=== PATIENT | male | born 1935 | race African-American/Black ===

== ENCOUNTER 2019-12-06 13:00 | Inpatient (IN) | payer MEDICARE, MEDICAID ==
[~2019-12-06] VITALS: Ht 182.9 cm; Wt 65.3 kg
[~2019-12-06 13:00] MED LIST: HYDR-4009 PO; METH-611 PO; NIFE-33 MT; SILD25TA9 PO; TERA10CA4 PO; [UNRECOGNIZED DRUG - CODE] PO
[2019-12-06] MEDS ORDERED: ONDANSETRON HCL 4MG/2ML INJ IV STA (14:14)
[2019-12-06] MEDS ORDERED: SODIUM CHLORIDE 0.9% 500 ML IV ONE (14:14)
[2019-12-06] MEDS ORDERED: NALOXONE HCL 1 MG/ML 2ML VIAL IV ONE (14:15)
[2019-12-06 14:29] LABS: BASOPHILS % 0.6 % (0.0-2.0); EOSINOPHILS % 0.3 % (0.0-5.0); HEMATOCRIT. 30.6 % (42.0-52.0); HEMOGLOBIN. 10.8 g/dL (14.0-18.0); LYMPHOCYTES % 9.7 % (20.0-50.0); MEAN CORPUSCULAR HEMOGLOBIN 29.1 pg (28.0-32.0); MEAN CORPUSCULAR VOLUME 82.4 fL (80.0-94.0); MONOCYTES % 7.1 % (2.0-8.0); NEUTROPHILS % 82.3 % (40.0-76.0); PLATELET 120 x1000/uL (130-400); RED BLOOD CELL COUNT 3.71 mill/uL (4.7-6.1)
[2019-12-06 14:40] LABS: INR 1.3; PROTHROMBIN TIME 14.5 sec (9.6-11.0)
[2019-12-06 14:50] LABS: CHLORIDE 117 mEq/L (98-107)
[2019-12-06 14:54] LABS: CLARITY URINE TURBID (CLEAR); COLOR URINE YELLOW (YELLOW); KETONES URINE NEGATIVE (NEGATIVE); LEUKOCYTE ESTERASE URINE 3+ (NEGATIVE); NITRITE URINE POSITIVE (NEGATIVE); OCCULT BLOOD URINE 2+ (NEGATIVE); PH URINE 5.5 (4.5-8.0); PROTEIN URINE 2+ (NEGATIVE); SPECIFIC GRAVITY URINE 1.014 (1.005-1.030); UROBILINOGEN URINE 0.2 E.U./dL (0.2-1.0)
[2019-12-06 14:54] LABS: ETHANOL BLOOD < 10 mg/dL
[2019-12-06 14:58] LABS: CREATINE KINASE 486 IU/L (39-308)
[2019-12-06] MEDS ORDERED: SODIUM POLYSTYRENE SULFONATE 15 G/60 ML BOT PO ONE (15:15)
[2019-12-06] MEDS ORDERED: CEFTRIAXONE 1 G PREMIX 50 ML IV ONE (15:15)
[2019-12-06] MEDS ORDERED: INSULIN REGULAR (HUMULIN R) 300UNITS/3ML IV ONE (15:15)
[2019-12-06] MEDS ORDERED: SODIUM BICARBONATE 8.4% 1 MEQ/ML 50ML SYR IV ONE (15:15)
[2019-12-06] MEDS ORDERED: DEXTROSE 50% WATER 50ML SYRINGE IV ONE (15:15)
[2019-12-06] MEDS ORDERED: CALCIUM CHLORIDE 1GM/10ML SYR IV ONE (15:15)
[2019-12-06 15:38] LABS: *AMPHETAMINES SCREEN URINE NEGATIVE (NEGATIVE); *BARBITURATES SCREEN URINE NEGATIVE (NEGATIVE); *BENZODIAZEPINES SCREEN URINE NEGATIVE (NEGATIVE); *COCAINE SCREEN URINE NEGATIVE (NEGATIVE); METHADONE URINE SCREEN NEGATIVE (NEGATIVE); OPIATES URINE SCREEN PRESUMTIVE POSITIVE (NEGATIVE)
[2019-12-06 15:39] LABS: CANNABINOID URINE SCREEN NEGATIVE (NEGATIVE); PHENCYCLIDINE URINE SCREEN NEGATIVE (NEGATIVE)
[2019-12-06 16:16] LABS: BG BASE EXCESS -10.7 mmol/L (-2.0-2.0); BG CARBOXYHEMOGLOBIN 0.3 % (0.5-1.5); BG DEOXYHEMOGLOBIN 5.7 % (0.0-5.0); BG FRACTION INSPIRED OXYGEN 21; BG HCO3 ACT 11.1 mmol/L (22.0-26.0); BG METHEMOGLOBIN 0.2 % (0.0-1.5); BG OXYGEN SATURATION 94.3 % (92.0-98.5); BG OXYHEMOGLOBIN 93.8 % (94.0-97.0); BG PCO2 16.5 mmHg (35.0-45.0); BG PH 7.446 (7.350-7.450); BG SAMPLE SITE RIGHT BRACHIAL; BG TOTAL HEMOGLOBIN 10.9 g/dL (12.0-18.0); BG VENT MODE ROOM AIR
[2019-12-06] MEDS ORDERED: HEPARIN 1000 UNITS/ML 10ML ONE (16:59)
[2019-12-06] MEDS ORDERED: DOCUSATE SODIUM 100MG CAPSULE PO PRN (17:00)
[2019-12-06] MEDS ORDERED: HYDROCODONE/ACETAMINOPHEN 5/325MG TABLET PO PRN (17:00)
[2019-12-06] MEDS ORDERED: MAGNESIUM/ALUMINUM HYDROXIDE/SIMETHICONE 30ML UDC PO PRN (17:00)
[2019-12-06] MEDS ORDERED: IPRATROPIUM/ALBUTEROL 0.5-3(2.5)MG/3ML NEB NEB PRN (17:00)
[2019-12-06] MEDS ORDERED: GUAIFENESIN 200MG/10ML SUGAR FREE UDC PO PRN (17:00)
[2019-12-06] MEDS ORDERED: ONDANSETRON HCL 4MG/2ML INJ IV PRN (17:00)
[2019-12-06] MEDS ORDERED: MORPHINE SULFATE 2 MG/ML CPJ (NOT FOR IM USE) IV PRN (17:00)
[2019-12-06] MEDS ORDERED: LORAZEPAM 2MG/ML CPJ IV PRN (17:00)
[2019-12-06] MEDS ORDERED: CLONIDINE 0.1MG TABLET PO PRN (17:00)
[2019-12-06] MEDS ORDERED: NA PHOS,M-B/NA PHOS,DI-BA ENEMA 118ML PR PRN (17:00)
[2019-12-06] MEDS: ENOXAPARIN 30MG/0.3ML SYR SUBCUT SCH (17:30)
[2019-12-06] MEDS: SODIUM CHLORIDE 0.45% 1,000 ML IV SCH (17:59)
[2019-12-06] MEDS ORDERED: MANNITOL 12.5G (25%) VIAL 50ML IV NR (18:00)
[2019-12-06 22:45] VITALS: BP 91/47
[2019-12-07] VITALS (12 sets, daily range): BP systolic 85–122; BP diastolic 53–68
[2019-12-07] MEDS ORDERED: MANNITOL 12.5G (25%) VIAL 50ML IV NR (02:30)
[2019-12-07] MEDS ORDERED: HEPARIN SODIUM 1,000 UNIT/1ML VIAL IV NR (04:30)
[2019-12-07 13:37] LABS: BASOPHILS % 0.4 % (0.0-2.0); EOSINOPHILS % 0.1 % (0.0-5.0); HEMATOCRIT. 28.1 % (42.0-52.0); HEMOGLOBIN. 9.9 g/dL (14.0-18.0); LYMPHOCYTES % 11.7 % (20.0-50.0); MEAN CORPUSCULAR HEMOGLOBIN 28.8 pg (28.0-32.0); MEAN CORPUSCULAR VOLUME 81.7 fL (80.0-94.0); MONOCYTES % 7.6 % (2.0-8.0); NEUTROPHILS % 80.2 % (40.0-76.0); PLATELET 92 x1000/uL (130-400); RED BLOOD CELL COUNT 3.44 mill/uL (4.7-6.1); RED CELL DISTRIBUTION WIDTH 20.6 % (11.6-14.6)
[2019-12-07 13:44] LABS: CHLORIDE 111 mEq/L (98-107)
[2019-12-07 13:51] LABS: LDL CHOLESTEROL 81 mg/dL (5-100)
[2019-12-07 13:53] LABS: HDL CHOLESTEROL 49 mg/dL (40-59); T4 FREE 0.85 ng/dL (0.76-1.46)
[2019-12-07 13:55] LABS: CREATINE KINASE 410 IU/L (39-308)
[2019-12-07] MEDS: SODIUM CHLORIDE 0.45% 1,000 ML IV SCH (14:28)
[2019-12-07] MEDS: CEFTRIAXONE 1 G PREMIX 50 ML IV SCH (15:08)
[2019-12-07] MEDS: ASPIRIN 81MG TABLET PO SCH (15:08)
[2019-12-07] MEDS: ENOXAPARIN 30MG/0.3ML SYR SUBCUT SCH (17:30)
[2019-12-07 18:10] LABS: T4 FREE 0.84 ng/dL (0.76-1.46)
[2019-12-08] VITALS (12 sets, daily range): BP systolic 111–127; BP diastolic 53–76
[2019-12-08 00:06] LABS: CREATINE KINASE MB FRACTION 7.5 ng/mL (0.5-3.6)
[2019-12-08 06:43] LABS: CREATINE KINASE MB FRACTION 7.6 ng/mL (0.5-3.6)
[2019-12-08] MEDS: ASPIRIN 81MG TABLET PO SCH (08:35)
[2019-12-08 13:04] LABS: HEPATITIS B SURFACE AB < 3.1 mIU/mL
[2019-12-08 13:15] LABS: HEPATITIS B SURFACE ANTIGEN NEGATIVE
[2019-12-08 13:45] LABS: HEPATITIS A AB IGM NEGATIVE (NEGATIVE)
[2019-12-08 15:40] LABS: CREATINE KINASE MB FRACTION 7.4 ng/mL (0.5-3.6)
[2019-12-08] MEDS: CEFTRIAXONE 1 G PREMIX 50 ML IV SCH (15:43)
[2019-12-08] MEDS: ENOXAPARIN 30MG/0.3ML SYR SUBCUT SCH (17:25)
[2019-12-09] VITALS (12 sets, daily range): BP systolic 108–134; BP diastolic 57–76
[2019-12-09] MEDS: SODIUM CHLORIDE 0.45% 1,000 ML IV SCH (05:30)
[2019-12-09 06:27] LABS: BASOPHILS % 0.5 % (0.0-2.0); EOSINOPHILS % 0.5 % (0.0-5.0); HEMATOCRIT. 31.9 % (42.0-52.0); HEMOGLOBIN. 10.9 g/dL (14.0-18.0); LYMPHOCYTES % 12.7 % (20.0-50.0); MEAN CORPUSCULAR HEMOGLOBIN 28.6 pg (28.0-32.0); MEAN CORPUSCULAR VOLUME 84.1 fL (80.0-94.0); MONOCYTES % 7.6 % (2.0-8.0); NEUTROPHILS % 78.7 % (40.0-76.0); PLATELET 94 x1000/uL (130-400); RED BLOOD CELL COUNT 3.79 mill/uL (4.7-6.1); RED CELL DISTRIBUTION WIDTH 21.6 % (11.6-14.6)
[2019-12-09] MEDS: ASPIRIN 81MG TABLET PO SCH (09:00)
[2019-12-09] MEDS ORDERED: HEPARIN SODIUM 1,000 UNIT/1ML VIAL IV NR (10:00)
[2019-12-09] MEDS: CEFTRIAXONE 1 G PREMIX 50 ML IV SCH (15:00)
[2019-12-09] MEDS: ENOXAPARIN 30MG/0.3ML SYR SUBCUT SCH (17:28)
[2019-12-10] VITALS (12 sets, daily range): BP systolic 108–137; BP diastolic 61–82
[2019-12-10] MEDS: SODIUM CHLORIDE 0.45% 1,000 ML IV SCH ×2 (02:17→09:19)
[2019-12-10 07:05] LABS: BASOPHILS % 0.3 % (0.0-2.0); EOSINOPHILS % 0.4 % (0.0-5.0); HEMATOCRIT. 33.2 % (42.0-52.0); HEMOGLOBIN. 11.4 g/dL (14.0-18.0); LYMPHOCYTES % 12.7 % (20.0-50.0); MEAN CORPUSCULAR HEMOGLOBIN 28.6 pg (28.0-32.0); MEAN CORPUSCULAR VOLUME 82.8 fL (80.0-94.0); MEAN PLATELET VOLUME 8.6 fl (7.4-10.4); MONOCYTES % 6.2 % (2.0-8.0); NEUTROPHILS % 80.4 % (40.0-76.0); PLATELET 86 x1000/uL (130-400); RED CELL DISTRIBUTION WIDTH 21.2 % (11.6-14.6)
[2019-12-10] MEDS: ASPIRIN 81MG TABLET PO SCH (09:19)
[2019-12-10] MEDS: CEFTRIAXONE 1 G PREMIX 50 ML IV SCH (15:55)
[2019-12-11] VITALS (13 sets, daily range): BP systolic 97–133; BP diastolic 56–76
[2019-12-11 06:33] LABS: BASOPHILS % 0.2 % (0.0-2.0); EOSINOPHILS % 0.5 % (0.0-5.0); HEMATOCRIT. 32.9 % (42.0-52.0); HEMOGLOBIN. 11.3 g/dL (14.0-18.0); LYMPHOCYTES % 8.4 % (20.0-50.0); MEAN CORPUSCULAR VOLUME 84.4 fL (80.0-94.0); MEAN PLATELET VOLUME 8.8 fl (7.4-10.4); MONOCYTES % 7.4 % (2.0-8.0); NEUTROPHILS % 83.5 % (40.0-76.0); PLATELET 79 x1000/uL (130-400); RED CELL DISTRIBUTION WIDTH 21.4 % (11.6-14.6)
[2019-12-11] MEDS: CARVEDILOL 3.125 MG TABLET PO SCH (09:06)
[2019-12-11] MEDS: LOSARTAN POTASSIUM 25 MG TABLET PO SCH (09:08)
[2019-12-11] MEDS: ASPIRIN 81MG TABLET PO SCH (09:08)
[2019-12-11] MEDS: CEFTRIAXONE 1 G PREMIX 50 ML IV SCH (15:30)
[2019-12-11] MEDS: SODIUM CHLORIDE 0.45% 1,000 ML IV SCH (15:31)
[2019-12-12] VITALS (11 sets, daily range): BP systolic 110–132; BP diastolic 58–88
[2019-12-12 07:06] LABS: BASOPHILS % 0.2 % (0.0-2.0); EOSINOPHILS % 0.5 % (0.0-5.0); HEMATOCRIT. 34.5 % (42.0-52.0); HEMOGLOBIN. 11.8 g/dL (14.0-18.0); LYMPHOCYTES % 10.2 % (20.0-50.0); MEAN CORPUSCULAR HEMOGLOBIN 28.6 pg (28.0-32.0); MEAN CORPUSCULAR VOLUME 83.7 fL (80.0-94.0); MEAN PLATELET VOLUME 9.1 fl (7.4-10.4); MONOCYTES % 7.3 % (2.0-8.0); NEUTROPHILS % 81.8 % (40.0-76.0); PLATELET 79 x1000/uL (130-400); RED BLOOD CELL COUNT 4.12 mill/uL (4.7-6.1); RED CELL DISTRIBUTION WIDTH 21.3 % (11.6-14.6)
[2019-12-12] MEDS: ASPIRIN 81MG TABLET PO SCH (08:43)
[2019-12-12] MEDS: LOSARTAN POTASSIUM 25 MG TABLET PO SCH (08:43)
[2019-12-12] MEDS: CARVEDILOL 3.125 MG TABLET PO SCH (08:43)
[2019-12-12] MEDS: SODIUM CHLORIDE 0.45% 1,000 ML IV SCH (14:09)
[2019-12-12] MEDS: CEFTRIAXONE 1 G PREMIX 50 ML IV SCH (16:09)
[2019-12-13] VITALS (17 sets, daily range): BP systolic 109–144; BP diastolic 61–81
[2019-12-13] MEDS: ACETAMINOPHEN 325MG TABLET PO PRN (01:37)
[2019-12-13] MEDS: ASPIRIN 81MG TABLET PO SCH (09:25)
[2019-12-13] MEDS: CARVEDILOL 3.125 MG TABLET PO SCH (09:26)
[2019-12-13] MEDS: SODIUM CHLORIDE 0.45% 1,000 ML IV SCH (09:26)
[2019-12-13] MEDS: LOSARTAN POTASSIUM 25 MG TABLET PO SCH (09:26)
[2019-12-13 10:47] LABS: BASOPHILS % 0.4 % (0.0-2.0); EOSINOPHILS % 0.4 % (0.0-5.0); HEMATOCRIT. 35.1 % (42.0-52.0); HEMOGLOBIN. 12.2 g/dL (14.0-18.0); LYMPHOCYTES % 9.9 % (20.0-50.0); MEAN CORPUSCULAR HEMOGLOBIN 29.1 pg (28.0-32.0); MEAN CORPUSCULAR VOLUME 83.9 fL (80.0-94.0); MEAN PLATELET VOLUME 9.1 fl (7.4-10.4); MONOCYTES % 6.5 % (2.0-8.0); NEUTROPHILS % 82.8 % (40.0-76.0); PLATELET 73 x1000/uL (130-400); RED BLOOD CELL COUNT 4.18 mill/uL (4.7-6.1); RED CELL DISTRIBUTION WIDTH 21.2 % (11.6-14.6)
[2019-12-14] VITALS (12 sets, daily range): BP systolic 109–140; BP diastolic 50–82
[2019-12-14] MEDS: SODIUM CHLORIDE 0.45% 1,000 ML IV SCH (06:51)
[2019-12-14 06:53] LABS: BASOPHILS % 0.4 % (0.0-2.0); EOSINOPHILS % 0.2 % (0.0-5.0); HEMATOCRIT. 34.4 % (42.0-52.0); HEMOGLOBIN. 11.7 g/dL (14.0-18.0); LYMPHOCYTES % 7.2 % (20.0-50.0); MEAN CORPUSCULAR HEMOGLOBIN 29.1 pg (28.0-32.0); MEAN CORPUSCULAR VOLUME 85.2 fL (80.0-94.0); MEAN PLATELET VOLUME 9.5 fl (7.4-10.4); MONOCYTES % 7.9 % (2.0-8.0); NEUTROPHILS % 84.3 % (40.0-76.0); PLATELET 74 x1000/uL (130-400); RED BLOOD CELL COUNT 4.03 mill/uL (4.7-6.1); RED CELL DISTRIBUTION WIDTH 21.2 % (11.6-14.6)
[2019-12-14] MEDS: CARVEDILOL 3.125 MG TABLET PO SCH (09:00)
[2019-12-14] MEDS: LOSARTAN POTASSIUM 25 MG TABLET PO SCH (09:00)
[2019-12-15] VITALS (12 sets, daily range): BP systolic 113–134; BP diastolic 60–83
[2019-12-15] MEDS: SODIUM CHLORIDE 0.45% 1,000 ML IV SCH (05:35)
[2019-12-15 06:44] LABS: HEMOGLOBIN. 11.7 g/dL (14.0-18.0); MEAN CORPUSCULAR HEMOGLOBIN 29.2 pg (28.0-32.0); MEAN CORPUSCULAR VOLUME 85.1 fL (80.0-94.0); MEAN PLATELET VOLUME 9.4 fl (7.4-10.4); PLATELET 78 x1000/uL (130-400); RED CELL DISTRIBUTION WIDTH 21.4 % (11.6-14.6)
[2019-12-15] MEDS: CARVEDILOL 3.125 MG TABLET PO SCH (08:42)
[2019-12-15] MEDS: LOSARTAN POTASSIUM 25 MG TABLET PO SCH (08:42)
[2019-12-15 14:32] LABS: PLATELET ESTIMATE DECREASED
[2019-12-16] VITALS (17 sets, daily range): BP systolic 97–136; BP diastolic 32–78
[2019-12-16 05:56] LABS: INR 1.3; PARTIAL THROMBOPLASTIN TIME 28.2 sec (23.4-31.0); PROTHROMBIN TIME 13.6 sec (9.6-11.0)
[2019-12-16 06:08] LABS: BASOPHILS % 0.5 % (0.0-2.0); EOSINOPHILS % 0.2 % (0.0-5.0); HEMATOCRIT. 35.5 % (42.0-52.0); LYMPHOCYTES % 5.8 % (20.0-50.0); MEAN CORPUSCULAR HEMOGLOBIN 28.7 pg (28.0-32.0); MEAN CORPUSCULAR VOLUME 85.1 fL (80.0-94.0); MEAN PLATELET VOLUME 9.9 fl (7.4-10.4); MONOCYTES % 7.9 % (2.0-8.0); NEUTROPHILS % 85.6 % (40.0-76.0); PLATELET 85 x1000/uL (130-400); RED BLOOD CELL COUNT 4.17 mill/uL (4.7-6.1); RED CELL DISTRIBUTION WIDTH 21.1 % (11.6-14.6)
[2019-12-16] MEDS ORDERED: ASCORBIC ACID 250 MG TABLET PO SCH (09:00)
[2019-12-16] MEDS ORDERED: CEFAZOLIN 1000MG PREMIX 50 ML IV SCH (10:00)
[2019-12-16] MEDS ORDERED: CEFAZOLIN 1000MG PREMIX 50 ML IV ONE (10:00)
[2019-12-16] MEDS ORDERED: SODIUM BICARBONATE 4% (2.4MEQ) 5ML VIAL IV ONE (10:09)
[2019-12-16] MEDS ORDERED: LIDOCAINE HCL 1% 20ML VIAL (Pyxis) INJ ONE (10:09)
[2019-12-16] MEDS: ZINC SULFATE 220 MG ( 50 ) CAPSULE PO SCH (12:34)
[2019-12-16] MEDS: ASCORBIC ACID 500 MG TABLET PO SCH (12:34)
[2019-12-16] MEDS: LOSARTAN POTASSIUM 25 MG TABLET PO SCH (12:35)
[2019-12-16] MEDS: CARVEDILOL 3.125 MG TABLET PO SCH (12:36)
[2019-12-17] VITALS (9 sets, daily range): BP systolic 93–136; BP diastolic 54–82
[2019-12-17] MEDS: ZINC SULFATE 220 MG ( 50 ) CAPSULE PO SCH (08:53)
[2019-12-17] MEDS: CARVEDILOL 3.125 MG TABLET PO SCH (08:53)
[2019-12-17] MEDS: LOSARTAN POTASSIUM 25 MG TABLET PO SCH (08:53)
[2019-12-17] MEDS: ASCORBIC ACID 500 MG TABLET PO SCH (08:53)
[2019-12-18] VITALS: BP_SYST 100; BP_SYST 93; BP_DIAS 54; BP_DIAS 61
[2019-12-18 04:00] VITALS: BP 123/72
[2019-12-18 06:16] LABS: BASOPHILS % 0.1 % (0.0-2.0); EOSINOPHILS % 0.1 % (0.0-5.0); HEMOGLOBIN. 10.8 g/dL (14.0-18.0); LYMPHOCYTES % 7.3 % (20.0-50.0); MEAN CORPUSCULAR HEMOGLOBIN 28.6 pg (28.0-32.0); MEAN CORPUSCULAR VOLUME 85.2 fL (80.0-94.0); MEAN PLATELET VOLUME 9.4 fl (7.4-10.4); MONOCYTES % 8.6 % (2.0-8.0); NEUTROPHILS % 83.9 % (40.0-76.0); PLATELET 89 x1000/uL (130-400); RED BLOOD CELL COUNT 3.75 mill/uL (4.7-6.1); RED CELL DISTRIBUTION WIDTH 21.4 % (11.6-14.6)
[2019-12-18 08:00] VITALS: BP 102/58
[2019-12-18] MEDS: ASCORBIC ACID 500 MG TABLET PO SCH (08:37)
[2019-12-18] MEDS: ZINC SULFATE 220 MG ( 50 ) CAPSULE PO SCH (08:37)
[2019-12-18] MEDS: CARVEDILOL 3.125 MG TABLET PO SCH (08:37)
[2019-12-18] MEDS: LOSARTAN POTASSIUM 25 MG TABLET PO SCH (08:38)
[2019-12-18 12:00] VITALS: BP 121/70
[2019-12-18 16:00] VITALS: BP 117/65
[2019-12-18 20:00] VITALS: BP 110/63
[2019-12-19] VITALS: BP 120/69
[2019-12-19 04:00] VITALS: BP 122/68
[2019-12-19 08:00] VITALS: BP 113/65
[2019-12-19] MEDS: CARVEDILOL 3.125 MG TABLET PO SCH (10:38)
[2019-12-19] MEDS: ASCORBIC ACID 500 MG TABLET PO SCH (10:39)
[2019-12-19] MEDS: ZINC SULFATE 220 MG ( 50 ) CAPSULE PO SCH (10:39)
[2019-12-19] MEDS: LOSARTAN POTASSIUM 25 MG TABLET PO SCH (10:41)
[2019-12-19 11:40] VITALS: BP 105/61
[2019-12-19 20:00] VITALS: BP 137/74
[2019-12-20] VITALS: BP 130/72
[2019-12-20 04:00] VITALS: BP 139/81
[2019-12-20] MEDS: ACETAMINOPHEN 325MG TABLET PO PRN (04:02)
[2019-12-20 08:32] VITALS: BP 122/64
[2019-12-20] MEDS: ZINC SULFATE 220 MG ( 50 ) CAPSULE PO SCH (08:50)
[2019-12-20] MEDS: ASCORBIC ACID 500 MG TABLET PO SCH (08:50)
[2019-12-20] MEDS: LOSARTAN POTASSIUM 25 MG TABLET PO SCH (08:51)
[2019-12-20] MEDS: CARVEDILOL 3.125 MG TABLET PO SCH (08:51)
[2019-12-20 11:52] VITALS: BP 105/72
[2019-12-20 16:01] VITALS: BP 112/68
[2019-12-20 20:00] VITALS: BP 116/69
[2019-12-21] VITALS: BP_SYST 108; BP_SYST 123; BP_DIAS 56; BP_DIAS 71
[2019-12-21 04:00] VITALS: BP 123/71
[2019-12-21 06:19] LABS: BASOPHILS % 0.4 % (0.0-2.0); EOSINOPHILS % 0.6 % (0.0-5.0); HEMATOCRIT. 30.7 % (42.0-52.0); HEMOGLOBIN. 10.4 g/dL (14.0-18.0); LYMPHOCYTES % 10.6 % (20.0-50.0); MEAN CORPUSCULAR VOLUME 85.8 fL (80.0-94.0); MONOCYTES % 12.9 % (2.0-8.0); NEUTROPHILS % 75.5 % (40.0-76.0); PLATELET 96 x1000/uL (130-400); RED BLOOD CELL COUNT 3.57 mill/uL (4.7-6.1); RED CELL DISTRIBUTION WIDTH 20.9 % (11.6-14.6)
[2019-12-21 08:00] VITALS: BP 112/64
[2019-12-21] MEDS: ZINC SULFATE 220 MG ( 50 ) CAPSULE PO SCH (09:04)
[2019-12-21] MEDS: CARVEDILOL 3.125 MG TABLET PO SCH (09:05)
[2019-12-21] MEDS: LOSARTAN POTASSIUM 25 MG TABLET PO SCH (09:05)
[2019-12-21] MEDS: ASCORBIC ACID 500 MG TABLET PO SCH (09:05)
[2019-12-21 12:00] VITALS: BP 121/63
[2019-12-21] MEDS ORDERED: HEPARIN SODIUM 1,000 UNIT/1ML VIAL IV NR (15:00)
[2019-12-21 16:00] VITALS: BP 113/64
[2019-12-21 20:00] VITALS: BP 109/70
[2019-12-22] VITALS: BP 119/68
[2019-12-22 04:50] VITALS: BP 129/77
[2019-12-22 08:00] VITALS: BP 141/76
[2019-12-22] MEDS: LOSARTAN POTASSIUM 25 MG TABLET PO SCH (09:25)
[2019-12-22] MEDS: ZINC SULFATE 220 MG ( 50 ) CAPSULE PO SCH (09:25)
[2019-12-22] MEDS: ASCORBIC ACID 500 MG TABLET PO SCH (09:25)
[2019-12-22] MEDS: CARVEDILOL 3.125 MG TABLET PO SCH (09:25)
[2019-12-22 12:00] VITALS: BP 135/69
[2019-12-22 16:00] VITALS: BP 124/69
[2019-12-22] MEDS: ACETAMINOPHEN 325MG TABLET PO PRN (16:24)
[2019-12-22] MEDS: HYDROCODONE/ACETAMINOPHEN 10/325MG TABLET PO PRN (16:56)
[2019-12-22 20:00] VITALS: BP 117/73
[2019-12-23] VITALS: BP 132/75
[2019-12-23 04:00] VITALS: BP 132/83
[2019-12-23 06:48] LABS: BASOPHILS % 0.8 % (0.0-2.0); EOSINOPHILS % 0.2 % (0.0-5.0); HEMATOCRIT. 30.9 % (42.0-52.0); HEMOGLOBIN. 10.4 g/dL (14.0-18.0); LYMPHOCYTES % 11.7 % (20.0-50.0); MEAN CORPUSCULAR HEMOGLOBIN 28.9 pg (28.0-32.0); MEAN CORPUSCULAR VOLUME 85.6 fL (80.0-94.0); MEAN PLATELET VOLUME 8.7 fl (7.4-10.4); MONOCYTES % 12.2 % (2.0-8.0); NEUTROPHILS % 75.1 % (40.0-76.0); PLATELET 106 x1000/uL (130-400); RED BLOOD CELL COUNT 3.61 mill/uL (4.7-6.1); RED CELL DISTRIBUTION WIDTH 20.6 % (11.6-14.6)
[2019-12-23 08:00] VITALS: BP 120/67
[2019-12-23] MEDS: ZINC SULFATE 220 MG ( 50 ) CAPSULE PO SCH (10:41)
[2019-12-23] MEDS: CARVEDILOL 3.125 MG TABLET PO SCH (10:41)
[2019-12-23] MEDS: ASCORBIC ACID 500 MG TABLET PO SCH (10:41)
[2019-12-23] MEDS: LOSARTAN POTASSIUM 25 MG TABLET PO SCH (10:57)
[2019-12-23 12:00] VITALS: BP 114/65
[2019-12-23] MEDS ORDERED: SODIUM POLYSTYRENE SULFONATE 15 G/60 ML BOT PO NR (12:00)
[2019-12-23 16:00] VITALS: BP 107/54
[2019-12-23 20:00] VITALS: BP 126/78
[2019-12-24] VITALS (7 sets, daily range): BP systolic 115–144; BP diastolic 61–87
[2019-12-24] MEDS: HYDROCODONE/ACETAMINOPHEN 10/325MG TABLET PO PRN ×2 (01:55→07:58)
[2019-12-24 09:43] LABS: BASOPHILS % 0.6 % (0.0-2.0); EOSINOPHILS % 0.3 % (0.0-5.0); HEMATOCRIT. 31.1 % (42.0-52.0); HEMOGLOBIN. 10.5 g/dL (14.0-18.0); MEAN CORPUSCULAR HEMOGLOBIN 28.9 pg (28.0-32.0); MEAN CORPUSCULAR VOLUME 85.5 fL (80.0-94.0); MEAN PLATELET VOLUME 8.5 fl (7.4-10.4); MONOCYTES % 9.8 % (2.0-8.0); NEUTROPHILS % 79.3 % (40.0-76.0); PLATELET 114 x1000/uL (130-400); RED BLOOD CELL COUNT 3.64 mill/uL (4.7-6.1); RED CELL DISTRIBUTION WIDTH 21.1 % (11.6-14.6)
[2019-12-24] MEDS: LOSARTAN POTASSIUM 25 MG TABLET PO SCH (11:33)
[2019-12-24] MEDS: ZINC SULFATE 220 MG ( 50 ) CAPSULE PO SCH (11:33)
[2019-12-24] MEDS: CARVEDILOL 3.125 MG TABLET PO SCH (11:33)
[2019-12-24] MEDS: ASCORBIC ACID 500 MG TABLET PO SCH (11:33)
[2019-12-24] MEDS ORDERED: MORPHINE SULFATE 2 MG/ML CPJ (NOT FOR IM USE) IV NR (12:45)
[2019-12-25] MEDS: HYDROCODONE/ACETAMINOPHEN 10/325MG TABLET PO PRN ×4 (00:06→23:52)
[2019-12-25 00:13] VITALS: BP 122/59
[2019-12-25 04:00] VITALS: BP 125/63
[2019-12-25 08:06] VITALS: BP 123/67
[2019-12-25] MEDS: ASCORBIC ACID 500 MG TABLET PO SCH (09:27)
[2019-12-25] MEDS: LOSARTAN POTASSIUM 25 MG TABLET PO SCH (09:27)
[2019-12-25] MEDS: ZINC SULFATE 220 MG ( 50 ) CAPSULE PO SCH (09:27)
[2019-12-25] MEDS: CARVEDILOL 3.125 MG TABLET PO SCH (09:28)
[2019-12-25 12:00] VITALS: BP 133/58
[2019-12-25 16:05] VITALS: BP 127/74
[2019-12-25 22:04] VITALS: BP 119/65
[2019-12-26 04:30] VITALS: BP 131/71
[2019-12-26 07:02] LABS: BASOPHILS % 0.7 % (0.0-2.0); EOSINOPHILS % 0.5 % (0.0-5.0); HEMATOCRIT. 29.8 % (42.0-52.0); LYMPHOCYTES % 14.2 % (20.0-50.0); MEAN CORPUSCULAR HEMOGLOBIN 28.6 pg (28.0-32.0); MEAN CORPUSCULAR VOLUME 85.6 fL (80.0-94.0); MONOCYTES % 12.8 % (2.0-8.0); NEUTROPHILS % 71.8 % (40.0-76.0); PLATELET 127 x1000/uL (130-400); RED BLOOD CELL COUNT 3.48 mill/uL (4.7-6.1); RED CELL DISTRIBUTION WIDTH 20.5 % (11.6-14.6)
[2019-12-26 08:00] VITALS: BP 112/70
[2019-12-26] MEDS: LOSARTAN POTASSIUM 25 MG TABLET PO SCH (09:00)
[2019-12-26] MEDS: CARVEDILOL 3.125 MG TABLET PO SCH (09:00)
[2019-12-26] MEDS: ASCORBIC ACID 500 MG TABLET PO SCH (10:00)
[2019-12-26] MEDS: ZINC SULFATE 220 MG ( 50 ) CAPSULE PO SCH (10:00)
[2019-12-26] MEDS: HYDROCODONE/ACETAMINOPHEN 10/325MG TABLET PO PRN (11:29)
[2019-12-26 12:00] VITALS: BP 120/76
[2019-12-26] MEDS ORDERED: SODIUM POLYSTYRENE SULFONATE 15 G/60 ML BOT PO SCH (12:00)
[2019-12-26 16:00] VITALS: BP 113/73
[2019-12-26 20:00] VITALS: BP 134/80
[2019-12-27] VITALS: BP 127/73
[2019-12-27 04:00] VITALS: BP 113/57
[2019-12-27 08:00] VITALS: BP 123/62
[2019-12-27] MEDS: LOSARTAN POTASSIUM 25 MG TABLET PO SCH (09:05)
[2019-12-27] MEDS: ASCORBIC ACID 500 MG TABLET PO SCH (09:05)
[2019-12-27] MEDS: CARVEDILOL 3.125 MG TABLET PO SCH (09:06)
[2019-12-27] MEDS: HYDROCODONE/ACETAMINOPHEN 10/325MG TABLET PO PRN (09:10)
[2019-12-27] MEDS: ZINC SULFATE 220 MG ( 50 ) CAPSULE PO SCH (09:10)
[2019-12-27 12:00] VITALS: BP 116/71
[2019-12-27 16:00] VITALS: BP 111/75
[2019-12-27 20:00] VITALS: BP 140/70
[2019-12-28] VITALS: BP 135/72
[2019-12-28 04:00] VITALS: BP 119/71
[2019-12-28 06:49] LABS: HEMATOCRIT 28.8 % (42.0-52.0); HEMOGLOBIN 9.6 g/dL (14.0-18.0); MEAN CORPUSCULAR HEMOGLOBIN 28.5 pg (28.0-32.0); MEAN CORPUSCULAR VOLUME 85.2 fL (80.0-94.0); PLATELET 119 x1000/uL (130-400); RED BLOOD CELL COUNT 3.38 mill/uL (4.7-6.1); RED CELL DISTRIBUTION WIDTH 20.7 % (11.6-14.6)
[2019-12-28 08:00] VITALS: BP 130/69
[2019-12-28] MEDS: ZINC SULFATE 220 MG ( 50 ) CAPSULE PO SCH (09:11)
[2019-12-28] MEDS: CARVEDILOL 3.125 MG TABLET PO SCH (09:11)
[2019-12-28] MEDS: LOSARTAN POTASSIUM 25 MG TABLET PO SCH (09:12)
[2019-12-28] MEDS: ASCORBIC ACID 500 MG TABLET PO SCH (09:13)
[2019-12-28 12:00] VITALS: BP 115/70
[2019-12-28] MEDS: MORPHINE SULFATE 2 MG/ML CPJ (NOT FOR IM USE) IV PRN (14:55)
[2019-12-28 16:00] VITALS: BP 114/82
[2019-12-28 20:00] VITALS: BP 127/63
[2019-12-28] MEDS: HYDROCODONE/ACETAMINOPHEN 10/325MG TABLET PO PRN (20:18)
[2019-12-29] VITALS: BP 129/68
[2019-12-29 04:00] VITALS: BP 138/69
[2019-12-29] MEDS: HYDROCODONE/ACETAMINOPHEN 10/325MG TABLET PO PRN ×2 (04:17→11:12)
[2019-12-29 08:00] VITALS: BP 141/72
[2019-12-29] MEDS: LOSARTAN POTASSIUM 25 MG TABLET PO SCH (09:00)
[2019-12-29] MEDS: CARVEDILOL 3.125 MG TABLET PO SCH (09:00)
[2019-12-29] MEDS: ASCORBIC ACID 500 MG TABLET PO SCH (09:06)
[2019-12-29] MEDS: ZINC SULFATE 220 MG ( 50 ) CAPSULE PO SCH (09:06)
[2019-12-29 12:00] VITALS: BP 122/68
[2019-12-29] MEDS: MORPHINE SULFATE 2 MG/ML CPJ (NOT FOR IM USE) IV PRN (14:54)
[2019-12-29 16:00] VITALS: BP 130/70
[2019-12-29 20:00] VITALS: BP 102/67
[2019-12-30] VITALS: BP 150/81
[2019-12-30 04:00] VITALS: BP 133/62
[2019-12-30 08:00] VITALS: BP 121/65
[2019-12-30] MEDS: LOSARTAN POTASSIUM 25 MG TABLET PO SCH (09:36)
[2019-12-30] MEDS: CARVEDILOL 3.125 MG TABLET PO SCH (09:36)
[2019-12-30] MEDS: ASCORBIC ACID 500 MG TABLET PO SCH (09:36)
[2019-12-30] MEDS: ZINC SULFATE 220 MG ( 50 ) CAPSULE PO SCH (09:36)
[2019-12-30] MEDS: MORPHINE SULFATE 2 MG/ML CPJ (NOT FOR IM USE) IV PRN ×2 (09:41→20:35)
[2019-12-30 12:00] VITALS: BP 135/61
[2019-12-30] MEDS: HYDROCODONE/ACETAMINOPHEN 10/325MG TABLET PO PRN (15:00)
[2019-12-30 16:00] VITALS: BP 124/58
[2019-12-30 20:00] VITALS: BP 125/68
[2019-12-31] VITALS: BP 108/54
[2019-12-31 04:00] VITALS: BP 136/69
[2019-12-31] MEDS: HYDROCODONE/ACETAMINOPHEN 10/325MG TABLET PO PRN ×2 (04:03→21:15)
[2019-12-31 07:02] LABS: BASOPHILS % 1.3 % (0.0-2.0); EOSINOPHILS % 1.5 % (0.0-5.0); HEMATOCRIT. 25.5 % (42.0-52.0); HEMOGLOBIN. 8.7 g/dL (14.0-18.0); LYMPHOCYTES % 11.6 % (20.0-50.0); MEAN CORPUSCULAR HEMOGLOBIN 29.2 pg (28.0-32.0); MEAN CORPUSCULAR VOLUME 85.7 fL (80.0-94.0); MEAN PLATELET VOLUME 8.2 fl (7.4-10.4); NEUTROPHILS % 71.6 % (40.0-76.0); PLATELET 109 x1000/uL (130-400); RED BLOOD CELL COUNT 2.98 mill/uL (4.7-6.1); RED CELL DISTRIBUTION WIDTH 20.7 % (11.6-14.6)
[2019-12-31 08:00] VITALS: BP 116/65
[2019-12-31] MEDS: ASCORBIC ACID 500 MG TABLET PO SCH (10:15)
[2019-12-31] MEDS: ZINC SULFATE 220 MG ( 50 ) CAPSULE PO SCH (10:15)
[2019-12-31] MEDS: CARVEDILOL 3.125 MG TABLET PO SCH (10:16)
[2019-12-31] MEDS: LOSARTAN POTASSIUM 25 MG TABLET PO SCH (10:16)
[2019-12-31] MEDS: MORPHINE SULFATE 2 MG/ML CPJ (NOT FOR IM USE) IV PRN ×2 (10:17→23:44)
[2019-12-31 12:00] VITALS: BP 146/75
[2019-12-31 16:00] VITALS: BP 110/73
[2019-12-31 20:00] VITALS: BP 145/73
[2020-01-01] VITALS: BP 145/80
[2020-01-01 04:00] VITALS: BP 138/74
[2020-01-01] MEDS: HYDROCODONE/ACETAMINOPHEN 10/325MG TABLET PO PRN ×2 (05:52→21:24)
[2020-01-01] MEDS: LOSARTAN POTASSIUM 25 MG TABLET PO SCH (09:21)
[2020-01-01] MEDS: ZINC SULFATE 220 MG ( 50 ) CAPSULE PO SCH (09:21)
[2020-01-01] MEDS: CARVEDILOL 3.125 MG TABLET PO SCH (09:21)
[2020-01-01] MEDS: ASCORBIC ACID 500 MG TABLET PO SCH (09:21)
[2020-01-01] MEDS: MORPHINE SULFATE 2 MG/ML CPJ (NOT FOR IM USE) IV PRN (11:45)
[2020-01-01 20:00] VITALS: BP 146/88
[2020-01-02] VITALS: BP 140/75
[2020-01-02] MEDS: MORPHINE SULFATE 2 MG/ML CPJ (NOT FOR IM USE) IV PRN ×2 (00:40→16:59)
[2020-01-02 04:00] VITALS: BP 136/78
[2020-01-02 06:34] LABS: BASOPHILS % 0.8 % (0.0-2.0); EOSINOPHILS % 1.4 % (0.0-5.0); HEMATOCRIT. 25.6 % (42.0-52.0); HEMOGLOBIN. 8.8 g/dL (14.0-18.0); LYMPHOCYTES % 11.4 % (20.0-50.0); MEAN CORPUSCULAR HEMOGLOBIN 29.1 pg (28.0-32.0); MEAN CORPUSCULAR VOLUME 85.3 fL (80.0-94.0); MEAN PLATELET VOLUME 8.6 fl (7.4-10.4); MONOCYTES % 10.4 % (2.0-8.0); PLATELET 98 x1000/uL (130-400); RED BLOOD CELL COUNT 3.01 mill/uL (4.7-6.1); RED CELL DISTRIBUTION WIDTH 21.1 % (11.6-14.6)
[2020-01-02 08:00] VITALS: BP 143/83
[2020-01-02] MEDS: ASCORBIC ACID 500 MG TABLET PO SCH (09:59)
[2020-01-02] MEDS: ZINC SULFATE 220 MG ( 50 ) CAPSULE PO SCH (09:59)
[2020-01-02] MEDS: CARVEDILOL 3.125 MG TABLET PO SCH (09:59)
[2020-01-02] MEDS: LOSARTAN POTASSIUM 25 MG TABLET PO SCH (09:59)
[2020-01-02 12:00] VITALS: BP 135/77
[2020-01-02] MEDS ORDERED: DIPHENHYDRAMINE 25MG CAPSULE PO PRN (12:15)
[2020-01-02] MEDS ORDERED: DEXTROSE 50% WATER 50ML SYRINGE IV SCH (14:00)
[2020-01-02] MEDS ORDERED: INSULIN REGULAR (HUMULIN R) UD 100 UNITS/ML SYR IV SCH (14:00)
[2020-01-02] MEDS: HYDROCODONE/ACETAMINOPHEN 10/325MG TABLET PO PRN ×2 (14:02→20:09)
[2020-01-02 16:00] VITALS: BP 133/75
[2020-01-02 20:00] VITALS: BP 132/78
[2020-01-03] VITALS: BP 130/75
[2020-01-03 04:00] VITALS: BP 135/81
[2020-01-03] MEDS: HYDROCODONE/ACETAMINOPHEN 10/325MG TABLET PO PRN (06:06)
[2020-01-03 08:00] VITALS: BP 134/68
[2020-01-03] MEDS: ZINC SULFATE 220 MG ( 50 ) CAPSULE PO SCH (08:41)
[2020-01-03] MEDS: ASCORBIC ACID 500 MG TABLET PO SCH (08:42)
[2020-01-03] MEDS: MORPHINE SULFATE 2 MG/ML CPJ (NOT FOR IM USE) IV PRN ×2 (08:42→22:41)
[2020-01-03] MEDS: LOSARTAN POTASSIUM 25 MG TABLET PO SCH (08:42)
[2020-01-03] MEDS: CARVEDILOL 3.125 MG TABLET PO SCH (08:42)
[2020-01-03 12:00] VITALS: BP 143/78
[2020-01-03 12:35] LABS: BASOPHILS % 0.7 % (0.0-2.0); EOSINOPHILS % 1.5 % (0.0-5.0); HEMATOCRIT. 25.6 % (42.0-52.0); HEMOGLOBIN. 8.7 g/dL (14.0-18.0); LYMPHOCYTES % 13.8 % (20.0-50.0); MEAN CORPUSCULAR HEMOGLOBIN 29.5 pg (28.0-32.0); MEAN CORPUSCULAR VOLUME 86.9 fL (80.0-94.0); MEAN PLATELET VOLUME 8.4 fl (7.4-10.4); PLATELET 99 x1000/uL (130-400); RED BLOOD CELL COUNT 2.95 mill/uL (4.7-6.1); RED CELL DISTRIBUTION WIDTH 21.4 % (11.6-14.6)
[2020-01-03] MEDS ORDERED: DEXTROSE 50% WATER 50ML SYRINGE IV NR ×2 (13:07→22:00)
[2020-01-03] MEDS ORDERED: SODIUM POLYSTYRENE SULFONATE 15 G/60 ML BOT PO NR (13:15)
[2020-01-03] MEDS ORDERED: INSULIN REGULAR (HUMULIN R) UD 100 UNITS/ML SYR IV NR (13:15)
[2020-01-03] MEDS ORDERED: CALCIUM CHLORIDE 1,000 MG in DEXT 5% WATER 90 ML IV NR (13:30)
[2020-01-03 16:00] VITALS: BP 153/79
[2020-01-03 20:00] VITALS: BP 139/68
[2020-01-03] MEDS ORDERED: SODIUM BICARBONATE 8.4% 1 MEQ/ML 50ML SYR IV NR (21:16)
[2020-01-03] MEDS ORDERED: INSULIN REGULAR (HUMULIN R) 300UNITS/3ML IV NR (22:00)
[2020-01-04] VITALS: BP 146/81
[2020-01-04 04:00] VITALS: BP 141/71
[2020-01-04 07:40] LABS: BASOPHILS % 0.5 % (0.0-2.0); EOSINOPHILS % 1.3 % (0.0-5.0); HEMATOCRIT. 26.8 % (42.0-52.0); LYMPHOCYTES % 10.9 % (20.0-50.0); MEAN CORPUSCULAR VOLUME 85.9 fL (80.0-94.0); MEAN PLATELET VOLUME 8.9 fl (7.4-10.4); NEUTROPHILS % 77.3 % (40.0-76.0); PLATELET 103 x1000/uL (130-400); RED BLOOD CELL COUNT 3.11 mill/uL (4.7-6.1); RED CELL DISTRIBUTION WIDTH 20.9 % (11.6-14.6)
[2020-01-04 08:00] VITALS: BP 138/73
[2020-01-04] MEDS: CARVEDILOL 3.125 MG TABLET PO SCH (09:00)
[2020-01-04] MEDS: LOSARTAN POTASSIUM 25 MG TABLET PO SCH (09:00)
[2020-01-04] MEDS: ZINC SULFATE 220 MG ( 50 ) CAPSULE PO SCH (09:53)
[2020-01-04] MEDS: ASCORBIC ACID 500 MG TABLET PO SCH (09:53)
[2020-01-04 12:00] VITALS: BP 107/61
[2020-01-04 16:00] VITALS: BP 116/68
[2020-01-04] MEDS: LORAZEPAM 2MG/ML CPJ IV PRN (16:16)
[2020-01-04 20:00] VITALS: BP 140/84
[2020-01-05] VITALS: BP 138/74
[2020-01-05 04:00] VITALS: BP 142/84
[2020-01-05 06:44] LABS: HEMATOCRIT. 26.8 % (42.0-52.0); MEAN CORPUSCULAR VOLUME 86.2 fL (80.0-94.0); MEAN PLATELET VOLUME 8.8 fl (7.4-10.4); PLATELET 93 x1000/uL (130-400); RED BLOOD CELL COUNT 3.11 mill/uL (4.7-6.1); RED CELL DISTRIBUTION WIDTH 21.3 % (11.6-14.6)
[2020-01-05 08:00] VITALS: BP 139/81
[2020-01-05] MEDS: CARVEDILOL 3.125 MG TABLET PO SCH (08:50)
[2020-01-05] MEDS: ASCORBIC ACID 500 MG TABLET PO SCH (08:50)
[2020-01-05] MEDS: LOSARTAN POTASSIUM 25 MG TABLET PO SCH (08:50)
[2020-01-05] MEDS: ZINC SULFATE 220 MG ( 50 ) CAPSULE PO SCH (08:50)
[2020-01-05 12:00] VITALS: BP 139/74
[2020-01-05 16:00] VITALS: BP 143/82
[2020-01-05 16:41] LABS: PLATELET ESTIMATE DECREASED
[2020-01-05 20:00] VITALS: BP 152/88
[2020-01-06] VITALS (23 sets, daily range): BP systolic 93–150; BP diastolic 41–82
[2020-01-06] MEDS: LORAZEPAM 2MG/ML CPJ IV PRN (02:37)
[2020-01-06] MEDS: ASCORBIC ACID 500 MG TABLET PO SCH (09:00)
[2020-01-06] MEDS: ZINC SULFATE 220 MG ( 50 ) CAPSULE PO SCH (09:00)
[2020-01-06] MEDS: LOSARTAN POTASSIUM 25 MG TABLET PO SCH (09:00)
[2020-01-06] MEDS: CARVEDILOL 3.125 MG TABLET PO SCH (09:00)
[2020-01-06] MEDS ORDERED: NALOXONE HCL 0.4 MG/ML 1ML VIAL IV NR (11:40)
[2020-01-06 12:09] LABS: BG BASE EXCESS -4.2 mmol/L (-2.0-2.0); BG CARBOXYHEMOGLOBIN 0.7 % (0.5-1.5); BG DEOXYHEMOGLOBIN 2.9 % (0.0-5.0); BG FRACTION INSPIRED OXYGEN 28; BG HCO3 ACT 17.5 mmol/L (22.0-26.0); BG METHEMOGLOBIN 0.2 % (0.0-1.5); BG OXYGEN SATURATION 97.1 % (92.0-98.5); BG OXYHEMOGLOBIN 96.2 % (94.0-97.0); BG PCO2 20.6 mmHg (35.0-45.0); BG PH 7.548 (7.350-7.450); BG PO2 93.3 mmHg (75.0-100.0); BG SAMPLE SITE RIGHT RADIAL; BG TOTAL HEMOGLOBIN 6.9 g/dL (12.0-18.0); BG VENT MODE NASAL CANNULA
[2020-01-06 13:30] LABS: BASOPHILS % 0.7 % (0.0-2.0); EOSINOPHILS % 0.7 % (0.0-5.0); HEMATOCRIT. 21.8 % (42.0-52.0); HEMOGLOBIN. 7.3 g/dL (14.0-18.0); LYMPHOCYTES % 13.3 % (20.0-50.0); MEAN CORPUSCULAR HEMOGLOBIN 29.2 pg (28.0-32.0); MEAN CORPUSCULAR VOLUME 87.2 fL (80.0-94.0); MEAN PLATELET VOLUME 8.8 fl (7.4-10.4); MONOCYTES % 11.8 % (2.0-8.0); NEUTROPHILS % 73.5 % (40.0-76.0); PLATELET 83 x1000/uL (130-400); RED CELL DISTRIBUTION WIDTH 21.3 % (11.6-14.6)
[2020-01-06 13:32] LABS: CHLORIDE 103 mEq/L (98-107)
[2020-01-06] MEDS ORDERED: LACTULOSE 20G/30ML UDC NG SCH (15:00)
[2020-01-06] MEDS ORDERED: DEXTROSE 50% WATER 50ML SYRINGE IV NR (15:45)
[2020-01-06 18:19] LABS: CHLORIDE 102 mEq/L (98-107)
[2020-01-06 19:00] LABS: BG BASE EXCESS -0.8 mmol/L (-2.0-2.0); BG CARBOXYHEMOGLOBIN 0.2 % (0.5-1.5); BG DEOXYHEMOGLOBIN 0.9 % (0.0-5.0); BG FRACTION INSPIRED OXYGEN 100; BG HCO3 ACT 21.3 mmol/L (22.0-26.0); BG METHEMOGLOBIN 0.4 % (0.0-1.5); BG OXYGEN SATURATION 99.1 % (92.0-98.5); BG OXYHEMOGLOBIN 98.5 % (94.0-97.0); BG PCO2 24.9 mmHg (35.0-45.0); BG PH 7.551 (7.350-7.450); BG PO2 324.9 mmHg (75.0-100.0); BG SAMPLE SITE RIGHT RADIAL; BG TOTAL HEMOGLOBIN 6.6 g/dL (12.0-18.0); BG VENT MODE MASK - NRB
[2020-01-06] MEDS ORDERED: IPRATROPIUM/ALBUTEROL 0.5-3(2.5)MG/3ML NEB HHN PRN (20:30)
[2020-01-06] MEDS: LACTULOSE 20G/30ML UDC NG SCH (21:02)
[2020-01-06] MEDS ORDERED: NOREPINEPHRINE 16 MG in DEXT 5% WATER 234 ML IV PRN (21:15)
[2020-01-07] VITALS (103 sets, daily range): BP systolic 89–126; BP diastolic 46–85
[2020-01-07] MEDS: LACTULOSE 20G/30ML UDC NG SCH ×7 (00:13→23:56)
[2020-01-07] MEDS: ACETYLCYSTEINE 100MG/ML 10% VIAL 4ML INH SCH ×3 (01:50→16:57)
[2020-01-07] MEDS: IPRATROPIUM/ALBUTEROL 0.5-3(2.5)MG/3ML NEB HHN SCH ×5 (01:50→21:08)
[2020-01-07] MEDS: LORAZEPAM 2MG/ML CPJ IV PRN ×3 (04:47→20:02)
[2020-01-07 06:02] LABS: HEMATOCRIT. 22.9 % (42.0-52.0); HEMOGLOBIN. 7.9 g/dL (14.0-18.0); MEAN CORPUSCULAR HEMOGLOBIN 29.4 pg (28.0-32.0); MEAN CORPUSCULAR VOLUME 85.1 fL (80.0-94.0); MEAN PLATELET VOLUME 8.8 fl (7.4-10.4); PLATELET 81 x1000/uL (130-400); RED BLOOD CELL COUNT 2.69 mill/uL (4.7-6.1); RED CELL DISTRIBUTION WIDTH 19.3 % (11.6-14.6)
[2020-01-07] MEDS: LOSARTAN POTASSIUM 25 MG TABLET PO SCH (09:00)
[2020-01-07] MEDS: CARVEDILOL 3.125 MG TABLET PO SCH (09:00)
[2020-01-07] MEDS ORDERED: FENTANYL CITRATE/PF 1,000 MCG in SODIUM CHLORIDE 0.9% 80 ML IV PRN (09:30)
[2020-01-07] MEDS ORDERED: ETOMIDATE 2MG/ML 10ML VIAL IV ONE (09:35)
[2020-01-07] MEDS ORDERED: VECURONIUM BROMIDE 10 MG/VIAL IV ONE (09:35)
[2020-01-07] MEDS ORDERED: SODIUM CHLORIDE 0.9% 10ML VIAL ONE (09:35)
[2020-01-07 10:20] LABS: BG BASE EXCESS 4.1 mmol/L (-2.0-2.0); BG CARBOXYHEMOGLOBIN 0.3 % (0.5-1.5); BG DEOXYHEMOGLOBIN 0.7 % (0.0-5.0); BG FRACTION INSPIRED OXYGEN 100; BG HCO3 ACT 28.6 mmol/L (22.0-26.0); BG METHEMOGLOBIN 0.1 % (0.0-1.5); BG OXYGEN SATURATION 99.3 % (92.0-98.5); BG OXYHEMOGLOBIN 98.9 % (94.0-97.0); BG PCO2 42.7 mmHg (35.0-45.0); BG PH 7.444 (7.350-7.450); BG PO2 574.8 mmHg (75.0-100.0); BG SAMPLE SITE RIGHT RADIAL; BG TIDAL VOLUME(mL) 500 mL; BG TOTAL HEMOGLOBIN 7.8 g/dL (12.0-18.0); BG VENT MODE VENT - A/C; BG VENT RATE 16 set
[2020-01-07] MEDS ORDERED: LIDOCAINE HCL 1% 20ML VIAL (Pyxis) INJ ONE (10:33)
[2020-01-07] MEDS ORDERED: LEVETIRACETAM 500 MG in SODIUM CHLORIDE 0.9% 100 ML IV SCH (10:45)
[2020-01-07] MEDS: LEVETIRACETAM 500MG PREMIX 100 ML IV SCH ×2 (12:54→20:16)
[2020-01-07] MEDS: ASCORBIC ACID 500 MG TABLET PO SCH (12:55)
[2020-01-07] MEDS: PANTOPRAZOLE SODIUM 40 MG/VIAL IV SCH ×2 (12:55→20:16)
[2020-01-07] MEDS: ZINC SULFATE 220 MG ( 50 ) CAPSULE PO SCH (12:56)
[2020-01-07 13:21] LABS: INR 1.6; PROTHROMBIN TIME 16.6 sec (9.6-11.0)
[2020-01-07 14:58] LABS: FOLIC ACID (FOLATE) SERUM 8.6 ng/mL (>5.38)
[2020-01-07 16:58] LABS: PLATELET ESTIMATE DECREASED
[2020-01-07] MEDS: CEFEPIME 1,000 MG in DEXTROSE 5% WATER 50 ML IV SCH (17:11)
[2020-01-07] MEDS: METRONIDAZOLE 500 MG PREMIX 100 ML IV SCH (17:12)
[2020-01-07] MEDS: RIFAXIMIN 550 MG TABLET PO SCH (20:18)
[2020-01-07 20:37] LABS: HEMATOCRIT 26.1 % (42.0-52.0); HEMOGLOBIN 8.6 g/dL (14.0-18.0)
[2020-01-08] VITALS (90 sets, daily range): BP systolic 87–130; BP diastolic 52–88
[2020-01-08] MEDS: ACETYLCYSTEINE 100MG/ML 10% VIAL 4ML INH SCH ×4 (00:10→16:55)
[2020-01-08] MEDS: IPRATROPIUM/ALBUTEROL 0.5-3(2.5)MG/3ML NEB HHN SCH ×6 (00:37→19:57)
[2020-01-08] MEDS: METRONIDAZOLE 500 MG PREMIX 100 ML IV SCH ×2 (05:04→17:37)
[2020-01-08] MEDS: LACTULOSE 20G/30ML UDC NG SCH ×5 (05:04→23:53)
[2020-01-08 05:15] LABS: HEMATOCRIT. 25.3 % (42.0-52.0); HEMOGLOBIN. 8.4 g/dL (14.0-18.0); MEAN CORPUSCULAR HEMOGLOBIN 28.9 pg (28.0-32.0); MEAN CORPUSCULAR VOLUME 87.2 fL (80.0-94.0); MEAN PLATELET VOLUME 8.8 fl (7.4-10.4); PLATELET 77 x1000/uL (130-400); RED CELL DISTRIBUTION WIDTH 19.6 % (11.6-14.6)
[2020-01-08] MEDS: LORAZEPAM 2MG/ML CPJ IV PRN (06:58)
[2020-01-08] MEDS ORDERED: LIDOCAINE HCL 1% 20ML VIAL (Pyxis) INJ ONE (07:34)
[2020-01-08] MEDS: CARVEDILOL 3.125 MG TABLET PO SCH (08:53)
[2020-01-08] MEDS: LOSARTAN POTASSIUM 25 MG TABLET PO SCH (08:53)
[2020-01-08] MEDS: LEVETIRACETAM 500MG PREMIX 100 ML IV SCH ×2 (09:17→20:16)
[2020-01-08] MEDS: ASCORBIC ACID 500 MG TABLET PO SCH (09:17)
[2020-01-08] MEDS: RIFAXIMIN 550 MG TABLET PO SCH ×2 (09:17→20:16)
[2020-01-08] MEDS: ZINC SULFATE 220 MG ( 50 ) CAPSULE PO SCH (09:17)
[2020-01-08] MEDS: PANTOPRAZOLE SODIUM 40 MG/VIAL IV SCH ×2 (09:17→17:37)
[2020-01-08 09:25] LABS: BG BASE EXCESS 3.1 mmol/L (-2.0-2.0); BG CARBOXYHEMOGLOBIN 0.3 % (0.5-1.5); BG DEOXYHEMOGLOBIN 1.5 % (0.0-5.0); BG FRACTION INSPIRED OXYGEN 50; BG HCO3 ACT 26.3 mmol/L (22.0-26.0); BG METHEMOGLOBIN 0.4 % (0.0-1.5); BG OXYGEN SATURATION 98.5 % (92.0-98.5); BG OXYHEMOGLOBIN 97.8 % (94.0-97.0); BG PCO2 34.5 mmHg (35.0-45.0); BG PO2 202.4 mmHg (75.0-100.0); BG SAMPLE SITE RIGHT RADIAL; BG TIDAL VOLUME(mL) 500 mL; BG TOTAL HEMOGLOBIN 8.8 g/dL (12.0-18.0); BG VENT MODE VENT - A/C; BG VENT RATE 16 set
[2020-01-08 14:08] LABS: PLATELET ESTIMATE DECREASED
[2020-01-08] MEDS: CEFEPIME 1,000 MG in DEXTROSE 5% WATER 50 ML IV SCH (17:37)
[2020-01-09] VITALS (75 sets, daily range): BP systolic 75–125; BP diastolic 46–90
[2020-01-09] MEDS: IPRATROPIUM/ALBUTEROL 0.5-3(2.5)MG/3ML NEB HHN SCH ×2 (00:10→04:40)
[2020-01-09 05:56] LABS: HEMATOCRIT. 24.1 % (42.0-52.0); MEAN CORPUSCULAR HEMOGLOBIN 29.3 pg (28.0-32.0); MEAN CORPUSCULAR VOLUME 88.4 fL (80.0-94.0); PLATELET 74 x1000/uL (130-400); RED BLOOD CELL COUNT 2.73 mill/uL (4.7-6.1); RED CELL DISTRIBUTION WIDTH 20.4 % (11.6-14.6)
[2020-01-09] MEDS: METRONIDAZOLE 500 MG PREMIX 100 ML IV SCH (06:01)
[2020-01-09] MEDS: LACTULOSE 20G/30ML UDC NG SCH (06:01)
[2020-01-09] MEDS: ASCORBIC ACID 500 MG TABLET PO SCH (08:20)
[2020-01-09] MEDS: ZINC SULFATE 220 MG ( 50 ) CAPSULE PO SCH (08:20)
[2020-01-09] MEDS: LEVETIRACETAM 500MG PREMIX 100 ML IV SCH (08:20)
[2020-01-09] MEDS: RIFAXIMIN 550 MG TABLET PO SCH (08:20)
[2020-01-09] MEDS: PANTOPRAZOLE SODIUM 40 MG/VIAL IV SCH (08:21)
[2020-01-09 08:55] LABS: BG BASE EXCESS 3.9 mmol/L (-2.0-2.0); BG CARBOXYHEMOGLOBIN 0.3 % (0.5-1.5); BG DEOXYHEMOGLOBIN 1.4 % (0.0-5.0); BG FRACTION INSPIRED OXYGEN 40; BG HCO3 ACT 27.1 mmol/L (22.0-26.0); BG METHEMOGLOBIN 0.7 % (0.0-1.5); BG OXYGEN SATURATION 98.6 % (92.0-98.5); BG OXYHEMOGLOBIN 97.6 % (94.0-97.0); BG PCO2 35.1 mmHg (35.0-45.0); BG PH 7.506 (7.350-7.450); BG PO2 166.1 mmHg (75.0-100.0); BG SAMPLE SITE RIGHT RADIAL; BG TIDAL VOLUME(mL) 500 mL; BG TOTAL HEMOGLOBIN 8.6 g/dL (12.0-18.0); BG VENT MODE VENT - A/C; BG VENT RATE 12 set
[2020-01-09 09:52] LABS: PLATELET ESTIMATE DECREASED
[2020-01-09] MEDS: MORPHINE SULFATE 250 MG in DEXT 5% WATER 240 ML IV PRN (11:33)
[2020-01-10] MEDS: MORPHINE SULFATE 250 MG in DEXT 5% WATER 240 ML IV PRN (03:12)
[2020-01-10 04:00] VITALS: BP 73/34
[2020-01-10 08:00] VITALS: BP 76/46
[2020-01-10 12:00] VITALS: BP 77/41
[2020-01-10 16:00] VITALS: BP 78/32
[2020-01-10 20:00] VITALS: BP 146/108
[2020-01-10 21:52] VITALS: BP 146/108
[2020-01-11] VITALS (7 sets, daily range): BP systolic 77–159; BP diastolic 35–123
[2020-01-11] MEDS: MORPHINE SULFATE 250 MG in DEXT 5% WATER 240 ML IV PRN (17:22)
[2020-01-12] VITALS: BP 83/39
[2020-01-12 04:00] VITALS: BP 79/38
[2020-01-12 08:00] VITALS: BP 84/43
[2020-01-12 12:00] VITALS: BP 83/41
[2020-01-12 16:00] VITALS: BP 85/38
[2020-01-12 20:00] VITALS: BP 85/46
[2020-01-13] VITALS: BP 85/44
[2020-01-13 04:00] VITALS: BP 86/46
[2020-01-13] MEDS: MORPHINE SULFATE 250 MG in DEXT 5% WATER 240 ML IV PRN (12:13)
[2020-01-13 20:00] VITALS: BP 81/39
[2020-01-14] VITALS: BP 82/43
[2020-01-14 04:00] VITALS: BP 84/41
[2020-01-14 08:00] VITALS: BP 82/36
[2020-01-14 12:00] VITALS: BP 84/31
[2020-01-14 16:00] VITALS: BP 66/26
[2020-01-14] MEDS ORDERED: MORPHINE SULFATE 250 MG in DEXT 5% WATER 240 ML IV PRN (18:45)
[2020-01-14 22:04] VITALS: BP 79/35
[2020-01-15] VITALS (7 sets, daily range): BP systolic 65–76; BP diastolic 31–35
== END 2020-01-15 19:15 | disposition expired | DRG 917 ==
LOC: ER 13:22 → 5EST 15:57 → EDBEDREQTM 16:05 → EDBEDREQ 16:05 → ENRESERV 21:25 → CANRESERV 21:25 → ENRESERV 21:44 → 6WST 12-17 13:29 → 6EST 12-26 23:50 → 5EST 01-06 13:05 → MICUNO 01-06 19:40 → 6EST 01-09 20:17
PROVIDERS: ADMIT Internal Medicine; ATTEND Internal Medicine
PROC: 02HV33Z Insertion of Infusion Device into Superior Vena Cava, Percutaneous Approach (ICD-10-PCS; 2019-12-06)
PROC: B548ZZA Ultrasonography of Superior Vena Cava, Guidance (ICD-10-PCS; 2019-12-06)
PROC: 5A1D70Z Performance of Urinary Filtration, Intermittent, Less than 6 Hours Per Day (ICD-10-PCS; 2019-12-06)
PROC: 4A00X4Z Measurement of Central Nervous Electrical Activity, External Approach (ICD-10-PCS; 2019-12-08)
PROC: 5A1D70Z Performance of Urinary Filtration, Intermittent, Less than 6 Hours Per Day (ICD-10-PCS; 2019-12-09)
PROC: 5A1D70Z Performance of Urinary Filtration, Intermittent, Less than 6 Hours Per Day (ICD-10-PCS; 2019-12-11)
PROC: 5A1D70Z Performance of Urinary Filtration, Intermittent, Less than 6 Hours Per Day (ICD-10-PCS; 2019-12-13)
PROC: 02PYX3Z Removal of Infusion Device from Great Vessel, External Approach (ICD-10-PCS; 2019-12-16)
PROC: 0JH63XZ Insertion of Tunneled Vascular Access Device into Chest Subcutaneous Tissue and Fascia, Percutaneous Approach (ICD-10-PCS; 2019-12-16)
PROC: 02HV33Z Insertion of Infusion Device into Superior Vena Cava, Percutaneous Approach (ICD-10-PCS; 2019-12-16)
PROC: B5181ZA Fluoroscopy of Superior Vena Cava using Low Osmolar Contrast, Guidance (ICD-10-PCS; 2019-12-16)
PROC: 5A1D70Z Performance of Urinary Filtration, Intermittent, Less than 6 Hours Per Day (ICD-10-PCS; 2019-12-16)
PROC: 5A1D70Z Performance of Urinary Filtration, Intermittent, Less than 6 Hours Per Day (ICD-10-PCS; 2019-12-18)
PROC: 5A1D70Z Performance of Urinary Filtration, Intermittent, Less than 6 Hours Per Day (ICD-10-PCS; 2019-12-21)
PROC: 5A1D70Z Performance of Urinary Filtration, Intermittent, Less than 6 Hours Per Day (ICD-10-PCS; 2019-12-24)
PROC: 5A1D70Z Performance of Urinary Filtration, Intermittent, Less than 6 Hours Per Day (ICD-10-PCS; 2019-12-26)
PROC: 5A1D70Z Performance of Urinary Filtration, Intermittent, Less than 6 Hours Per Day (ICD-10-PCS; 2019-12-29)
PROC: 5A1D70Z Performance of Urinary Filtration, Intermittent, Less than 6 Hours Per Day (ICD-10-PCS; 2019-12-31)
PROC: 5A1D70Z Performance of Urinary Filtration, Intermittent, Less than 6 Hours Per Day (ICD-10-PCS; 2020-01-02)
PROC: 5A1D70Z Performance of Urinary Filtration, Intermittent, Less than 6 Hours Per Day (ICD-10-PCS; 2020-01-03)
PROC: 5A1D70Z Performance of Urinary Filtration, Intermittent, Less than 6 Hours Per Day (ICD-10-PCS; 2020-01-06)
PROC: 5A1D70Z Performance of Urinary Filtration, Intermittent, Less than 6 Hours Per Day (ICD-10-PCS; 2020-01-06)
PROC: 5A1945Z Respiratory Ventilation, 24-96 Consecutive Hours (ICD-10-PCS; principal; 2020-01-07)
PROC: 0BH17EZ Insertion of Endotracheal Airway into Trachea, Via Natural or Artificial Opening (ICD-10-PCS; 2020-01-07)
PROC: 30233N1 Transfusion of Nonautologous Red Blood Cells into Peripheral Vein, Percutaneous Approach (ICD-10-PCS; 2020-01-07)
PROC: 5A1D70Z Performance of Urinary Filtration, Intermittent, Less than 6 Hours Per Day (ICD-10-PCS; 2020-01-07)
PROC: 05HY33Z Insertion of Infusion Device into Upper Vein, Percutaneous Approach (ICD-10-PCS; 2020-01-08)
PROC: B54NZZA Ultrasonography of Left Upper Extremity Veins, Guidance (ICD-10-PCS; 2020-01-08)
DX: T40.1X1A Poisoning by heroin, accidental (unintentional), initial encounter (principal); A41.9 Sepsis, unspecified organism; N17.0 Acute kidney failure with tubular necrosis; J69.0 Pneumonitis due to inhalation of food and vomit; J96.00 Acute respiratory failure, unspecified whether with hypoxia or hypercapnia; I21.4 Non-ST elevation (NSTEMI) myocardial infarction; K72.00 Acute and subacute hepatic failure without coma; G92 Toxic encephalopathy; N18.6 End stage renal disease; E46 Unspecified protein-calorie malnutrition; I12.0 Hypertensive chronic kidney disease with stage 5 chronic kidney disease or end stage renal disease; E87.2 Acidosis; R57.9 Shock, unspecified; D68.9 Coagulation defect, unspecified; E87.0 Hyperosmolality and hypernatremia; G40.89 Other seizures; I42.0 Dilated cardiomyopathy; N13.6 Pyonephrosis; R18.8 Other ascites; Z68.1 Body mass index [BMI] 19.9 or less, adult; N39.0 Urinary tract infection, site not specified; E86.0 Dehydration; E87.5 Hyperkalemia; E11.22 Type 2 diabetes mellitus with diabetic chronic kidney disease; I27.29 Other secondary pulmonary hypertension; D64.9 Anemia, unspecified; B19.20 Unspecified viral hepatitis C without hepatic coma; D69.6 Thrombocytopenia, unspecified; I48.91 Unspecified atrial fibrillation; Z51.5 Encounter for palliative care; Z66 Do not resuscitate; E11.51 Type 2 diabetes mellitus with diabetic peripheral angiopathy without gangrene; L85.3 Xerosis cutis; K80.20 Calculus of gallbladder without cholecystitis without obstruction; K74.60 Unspecified cirrhosis of liver; F41.9 Anxiety disorder, unspecified; L89.816 Pressure-induced deep tissue damage of head; L89.156 Pressure-induced deep tissue damage of sacral region; B95.7 Other staphylococcus as the cause of diseases classified elsewhere; Z79.899 Other long term (current) drug therapy; Z99.2 Dependence on renal dialysis; Y92.89 Other specified places as the place of occurrence of the external cause; Z03.818 Encounter for observation for suspected exposure to other biological agents ruled out; Z88.8 Allergy status to other drugs, medicaments and biological substances; Z79.82 Long term (current) use of aspirin; L89.116 Pressure-induced deep tissue damage of right upper back; L89.126 Pressure-induced deep tissue damage of left upper back
CPT/HCPCS: 36415; 36558; 36589; 36600; 71045; 76700; 76770; 76937; 77001; 78580; 80048; 80053; 80061; 80076; 80305; 80307; 80320; 80329; 81003; 82040; 82140; 82270; 82375; 82550; 82553; 82607; 82728; 82746; 82805; 82962; 83036; 83540; 83550; 83605; 83880; 84132; 84134; 84153; 84439; 84443; 84484; 85014; 85018; 85025; 85027; 85362; 85379; 85384; 85651; 86022; 86140; 86705; 86706; 86709; 86803; 86850; 86900; 86920; 87070; 87077; 87186; 87340; 92610; 93005; 93306; 93923; 93970; 94003; 94640; 95816; 96365; 97110; 97162; 97166; 97530; 97535; 99291; C1725; C1750; C1769; C9113; J0690; J0692; J0696; J1642; J1644; J1650; J1815; J1953; J2060; J2150; J2270; J2274; J2310; J2405; J3010; J3490; J7040; J7050; J7060; J7608; P9016; G0103; G0480; U0003-CS